=== PATIENT | female | born 1975 | race Caucasian/White ===

== ENCOUNTER → 2019-04-24 | Outpatient (CLI) | payer OTHER ==
[~2019-04-24] MED LIST: FAMOTIDINE PO; LO-OVRAL-211 EACH; NAPROXEN 500MG500 MG PO; NORCO 5-325 TA1 EACH PO; NORFLEX100 MG PO; [UNRECOGNIZED DRUG - OTHER]
== END ==
LOC: M.RAD 15:23
DX: M48.061 Spinal stenosis, lumbar region without neurogenic claudication (principal); G95.89 Other specified diseases of spinal cord; M25.561 Pain in right knee; M25.562 Pain in left knee